=== PATIENT | female | born 1980 | race American Indian/Alaskan Native ===

== ENCOUNTER 2018-04-23 18:56 | Inpatient (IN) | payer MEDICAID, OTHER ==
[2018-04-23] MEDS ORDERED: POLYCILLIN/NS 2 GM/100 ML 2 GM/100 ML BAG IV ONE (20:59)
[2018-04-23] MEDS ORDERED: LACTATED RINGERS 1,000 ML IV SCH ×2 (21:00→22:00)
[2018-04-23] MEDS ORDERED: PITOCin/NS 20 UNIT/1000ML DRIP 20 UNITS/1,000 ML BAG IV SCH ×2 (21:00→22:00)
[2018-04-23] MEDS ORDERED: SUBLIMAZE IV PRN ×2 (21:10→21:50)
[2018-04-23] MEDS ORDERED: ZOFRAN IV PRN (21:50)
[2018-04-23] MEDS ORDERED: BRETHINE SUB-Q PRN (21:50)
[2018-04-23] MEDS ORDERED: STADOL IV PRN (21:50)
[2018-04-23] MEDS ORDERED: NARCAN 0.4 MG/1 ML IV PRN (21:50)
[2018-04-23] MEDS ORDERED: ePHEDrine SULFATE IV PRN (21:50)
[2018-04-23] MEDS ORDERED: BRETHINE IVP PRN (21:50)
[2018-04-23] MEDS ORDERED: XYLOCAINE 2% INFILTRATI ONE (21:50)
[2018-04-23] MEDS ORDERED: MINERAL OIL PO PRN (21:50)
[2018-04-23] MEDS ORDERED: AMPICILLIN/NS 1 GM/50 ML 1 GM/50 ML BAG IV SCH (22:00)
[2018-04-23] MEDS ORDERED: POLYCILLIN IV SCH (22:00)
--- NOTE | 2018-04-23 22:13 | History and Physical Report ---
History of Present Illness Date of examination: 04/23/18 Date of admission: 04/23/18 20:47 Chief complaint: contractions q 4-5 min History of present illness: 38 yo BF with RIKA 04/24/2018 to L&D in active labor. No records available for review. Seen in office today, was told she was 4 cm. Presently, she is 4 cm/70/-1, BOW intact. Contractions q 4-5 min, mild to mod quality. Small amt bloody show. FHT's category I. 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) Family/Genetic History: diabetes (mgm) Social history: no significant social history - Obstetrical History Expected Date of Delivery: 04/24/18 Actual Gestation: 39 Week(s) 6 Day(s) : 5 Para: 3 (1203) Hx # Term Pregnancies: 1 Number of Pregnancies: 2 Spontaneous Abortions: 0 Induced : 0 Number of Living Children: 3 Medications and Allergies Allergies Allergy/AdvReac Type Severity Reaction Status Date / Time No Known Allergies Allergy Unverified 04/23/18 19:16 Active Meds: Active Medications Butorphanol Tartrate (Stadol) 2 mg IV Q2H PRN PRN Reason: Pain , Severe (7-10) Ephedrine Sulfate (Ephedrine Sulfate) 10 mg IV Q2M PRN PRN Reason: Hypotension Fentanyl (Sublimaze) 100 mcg IV Q2H PRN PRN Reason: Labor Pain Ampicillin Sodium (Ampicillin/Ns 1 Gm/50 Ml) 1 gm in 50 mls @ 100 mls/hr IV Q4HR ISREAL Lactated Ringer's (Lactated Ringers) 1,000 mls @ 125 mls/hr IV DIRECT ISREAL Oxytocin/Sodium Chloride (Pitocin/Ns 20 Unit/1000ml Drip) 20 units in 1,000 mls @ 125 mls/hr IV DIRECT ISREAL Mineral Oil (Mineral Oil) 30 ml PO QHS PRN PRN Reason: Constipation Naloxone HCl (Narcan 0.4 Mg/1 Ml) 0.1 mg IV Q2MIN PRN PRN Reason: Res Rate </= 8 or 02 SAT < 92% Ondansetron HCl (Zofran) 4 mg IV Q8H PRN PRN Reason: Nausea And Vomiting Terbutaline Sulfate (Brethine) 0.25 mg SUB-Q ONCE PRN PRN Reason: Hyperstimulation/Hypertonicity Terbutaline Sulfate (Brethine) 0.25 mg IVP ONCE PRN PRN Reason: Hyperstimulation/Hypertonicity Review of Systems All systems: negative - Vital Signs Vital signs: Vital Signs Temp Pulse Resp BP 98.9 F 77 18 120/71 04/23/18 19:18 04/23/18 19:18 04/23/18 19:18 04/23/18 19:18 Temp Pulse Resp BP Pulse Ox 98.9 F 62 18 132/65 95 04/23/18 19:18 04/23/18 22:06 04/23/18 21:35 04/23/18 21:47 04/23/18 22:06 - Physical Exam Breasts: Positive: normal Cardiovascular: Regular rate, No murmurs Lungs: Positive: Clear to auscultation Abdomen: Positive: normal appearance, other (gravid) Genitourinary (Female): Positive: normal external genitalia, normal perenium Vagina: Positive: other (small amt show) Uterus: Positive: enlarged (gravid) Extremities: Positive: normal - Obstetrical FHR: category 1 Uterine Contraction Monitor Mode: External Cervical Dilatation: 4 Cervical Effacement Percentage: 70 station: -1 Uterine Contraction Frequency (min): 4-5 Uterine Contraction Pattern: Regular Results All other labs normal. Assessment and Plan - Patient Problems (1) Active labor at term Current Visit: Yes Status: Acute
[2018-04-23 22:14] LABS: Basophils # (Auto) 0.1 K/mm3 (0.0-0.1); Basophils % (Auto) 0.4 % (0.0-1.8); Eosinophils # (Auto) 0.1 K/mm3 (0.0-0.4); Hematocrit 36.6 % (30.3-42.9); Lymphocytes % (Auto) 13.3 % (13.4-35.0); Mean Corpuscular HGB Conc 33 % (30-34); Mean Corpuscular Hemoglobin 32 pg (28-32); Mean Corpuscular Volume 99 fl (79-97); Monocytes # (Auto) 1.1 K/mm3 (0.0-0.8); Monocytes % (Auto) 7.7 % (0.0-7.3); Platelet Count 205 K/mm3 (140-440); Red Blood Count 3.72 M/mm3 (3.65-5.03); Red Cell Distribution Width 19.5 % (13.2-15.2)
--- NOTE | 2018-04-23 23:33 | Progress Note ---
Assessment and Plan - Patient Problems (1) Active labor at term Current Visit: Yes Status: Acute Subjective - Subjective Date of service: 04/23/18 Interval history: 38 yo BF with RIKA 04/24/2018 to L&D in active labor. No records available for review. Seen in office today, was told she was 4 cm. Presently, she is 4 cm/70/-1, BOW intact. Contractions q 4-5 min, mild to mod quality. Small amt bloody show. FHT's category I. Patient reports: movement normal, contractions Objective - Vital Signs Vital Signs: Vital Signs - 12hr 04/23/18 04/23/18 04/23/18 19:18 19:20 20:05 Temperature 98.9 F Pulse Rate 77 77 80 Respiratory 18 Rate Blood Pressure 120/71 133/66 Blood Pressure 120/71 [Left] O2 Sat by Pulse Oximetry 04/23/18 04/23/18 04/23/18 20:46 20:51 20:56 Temperature Pulse Rate 78 78 79 Respiratory Rate Blood Pressure 123/73 Blood Pressure [Left] O2 Sat by Pulse 97 96 97 Oximetry 04/23/18 04/23/18 04/23/18 21:01 21:06 21:09 Temperature Pulse Rate 75 74 85 Respiratory Rate Blood Pressure Blood Pressure [Left] O2 Sat by Pulse 96 95 94 Oximetry 04/23/18 04/23/18 04/23/18 21:11 21:14 21:16 Temperature Pulse Rate 83 78 78 Respiratory Rate Blood Pressure 133/75 Blood Pressure [Left] O2 Sat by Pulse 95 93 94 Oximetry 04/23/18 04/23/18 04/23/18 21:20 21:21 21:26 Temperature Pulse Rate 73 76 78 Respiratory Rate Blood Pressure Blood Pressure [Left] O2 Sat by Pulse 94 93 94 Oximetry 04/23/18 04/23/18 04/23/18 21:31 21:32 21:35 Temperature Pulse Rate 84 79 Respiratory 18 Rate Blood Pressure Blood Pressure [Left] O2 Sat by Pulse 93 92 Oximetry 04/23/18 04/23/18 04/23/18 21:36 21:37 21:41 Temperature Pulse Rate 77 82 76 Respiratory Rate Blood Pressure Blood Pressure [Left] O2 Sat by Pulse 93 92 91 Oximetry 04/23/18 04/23/18 04/23/18 21:45 21:46 21:47 Temperature Pulse Rate 79 74 72 Respiratory Rate Blood Pressure 132/65 Blood Pressure [Left] O2 Sat by Pulse 92 92 Oximetry 04/23/18 04/23/18 04/23/18 21:51 21:56 22:01 Temperature Pulse Rate 74 74 67 Respiratory Rate Blood Pressure Blood Pressure [Left] O2 Sat by Pulse 92 91 95 Oximetry 04/23/18 04/23/18 04/23/18 22:05 22:06 22:11 Temperature Pulse Rate 62 75 Respiratory 18 Rate Blood Pressure Blood Pressure [Left] O2 Sat by Pulse 95 94 Oximetry 04/23/18 04/23/18 04/23/18 22:16 22:30 22:35 Temperature 98.0 F Pulse Rate 84 74 75 Respiratory Rate Blood Pressure 137/82 Blood Pressure [Left] O2 Sat by Pulse 94 97 97 Oximetry 04/23/18 04/23/18 04/23/18 22:40 22:45 22:50 Temperature Pulse Rate 72 74 78 Respiratory Rate Blood Pressure Blood Pressure [Left] O2 Sat by Pulse 98 97 97 Oximetry 04/23/18 04/23/18 04/23/18 22:55 23:00 23:05 Temperature Pulse Rate 84 78 89 Respiratory Rate Blood Pressure Blood Pressure [Left] O2 Sat by Pulse 97 95 97 Oximetry 04/23/18 04/23/18 04/23/18 23:10 23:15 23:16 Temperature Pulse Rate 81 79 77 Respiratory Rate Blood Pressure 121/66 Blood Pressure [Left] O2 Sat by Pulse 96 97 Oximetry 04/23/18 04/23/18 04/23/18 23:20 23:25 23:30 Temperature Pulse Rate 92 H 98 H 91 H Respiratory Rate Blood Pressure Blood Pressure [Left] O2 Sat by Pulse 97 98 99 Oximetry - Exam Narrative Exam: Cervix 5/100/-1. BOW intact. Bolusing for epidural. Contractions q 2-3 min, moderate quality. FHT's category I. Plan:: epidural; anticipate vag delivery - Labs Labs: Abnormal Labs 04/23/18 20:30 WBC 14.8 H MCV 99 H RDW 19.5 H Lymph % (Auto) 13.3 L [place] % (Auto) 7.7 H [place] # 1.1 H Seg Neutrophils % 77.6 H Seg Neutrophils # 11.5 H Laboratory Results - last 24 hr 04/23/18 04/23/18 20:30 22:36 WBC 14.8 H RBC 3.72 Hgb 12.0 Hct 36.6 MCV 99 H MCH 32 MCHC 33 RDW 19.5 H Plt Count 205 Lymph % (Auto) 13.3 L [place] % (Auto) 7.7 H Eos % (Auto) 1.0 Baso % (Auto) 0.4 Lymph # 2.0 [place] # 1.1 H Eos # 0.1 Baso # 0.1 Seg Neutrophils % 77.6 H Seg Neutrophils # 11.5 H Blood Type B POSITIVE
[2018-04-23] MEDS ORDERED: NARCAN 2 MG/2 ML IV PRN (23:36)
[2018-04-23] MEDS ORDERED: fentaNYL-BUPIV 2 MCG/ML-0.125% 200 MCG/100 ML BAG EPIDURAL SCH (23:45)
[2018-04-24] MEDS ORDERED: ZOFRAN IV PRN (03:57)
[2018-04-24] MEDS ORDERED: PHENERGAN PO PRN (03:57)
[2018-04-24] MEDS ORDERED: BENADRYL PO PRN (03:57)
[2018-04-24] MEDS ORDERED: LANSINOH TP PRN (03:57)
[2018-04-24] MEDS ORDERED: DULCOLAX PR PRN (03:57)
[2018-04-24] MEDS ORDERED: MILK OF MAGNESIA PO PRN (03:57)
[2018-04-24] MEDS ORDERED: PHENERGAN PR PRN (03:57)
[2018-04-24] MEDS ORDERED: TYLENOL PO PRN (03:57)
[2018-04-24] MEDS ORDERED: TUCKS PAD TP PRN (03:57)
--- NOTE | 2018-04-24 03:57 | Procedure Note ---
OB Delivery Note - Delivery Date of Delivery: 04/24/18 (@ 0330) Surgeon: TORIBIO EVANS (CN) Estimated blood loss: 100cc - Vaginal Delivery presentation: vertex Delivery position: OA Intrapartum events: none Delivery induction: none Delivery monitor: external FHT Route of delivery: Delivery placenta: spontaneous Delivery cord: 3 umbilical vessels Episiotomy: none Delivery laceration: none Anesthesia: epidural Delivery comments: Spont vag del of live female inf @ 0330 over intact perineum. 8, 9. Baby placed skin to skin. Delayed cord clamping. Spont del of intact placenta with 3 vessels @ 0341. No lacerations. EBL 100. initiated in L& D. - A at 1 minute: 8 at 5 minutes: 9 Gender: Female (wgt 2595 (5-12 oz))
[2018-04-24] MEDS ORDERED: SODIUM CHLORIDE FLUSH SYRINGE 10 ML IV NR (04:00)
[2018-04-24] MEDS ORDERED: PITOCin/NS 20 UNIT/1000ML DRIP 20 UNITS/1,000 ML BAG IV SCH (04:00)
[2018-04-24] MEDS: MOTRIN PO SCH ×2 (06:02→14:10)
[2018-04-24] MEDS ORDERED: PITOCin/NS 20 UNIT/1000ML DRIP 20,000 MILLIUNITS/1,000 ML BAG IV ONE (06:09)
[2018-04-24 15:53] LABS: Hemoglobin 11.4 gm/dl (10.1-14.3)
[2018-04-24 18:37] LABS: Hepatitis C Virus Antibody Non-Reactive (NonReactive)
[2018-04-24 18:38] LABS: Rubella IgG Antibody Immune (Immune)
[2018-04-25] MEDS: MOTRIN PO SCH ×3 (00:19→12:37)
[2018-04-25 01:03] VITALS: BP 100/50
[2018-04-25] MEDS ORDERED: BOOSTRIX IM ONE (06:00)
--- NOTE | 2018-04-25 12:56 | Progress Note ---
Assessment and Plan - Patient Problems (1) (normal spontaneous vaginal delivery) Onset Date: 04/25/18 Current Visit: Yes Status: Resolved Plan to address problem: A: S/P - PPD #1 Doing well P: May go home today. Subjective - Subjective Date of service: 04/25/18 Principal diagnosis: s/p - PPD #1 Interval history: Pt is feeling well without complaints. Bleeding has improved. Patient reports: appetite normal, voiding normally, pain well controlled, flatus , ambulating normally, no dizzy ambulation, no nauseated : doing well, nursing well, bottle feeding Objective - Vital Signs Latest vital signs: Vital Signs Temp Pulse Resp BP Pulse Ox 04/25/18 00:00 98.0 F 64 18 100/50 99 04/24/18 16:30 98.3 F 72 18 121/71 98 Intake and Output 04/24/18 04/25/18 04/25/18 22:59 06:59 14:59 Intake Total 960 240 Output Total 700 Balance 260 240 Intake: Oral 960 240 Output: Urine 700 Void 700 Other: Total, Intake Amount 240 240 Total, Output Amount 700 # Voids Void 1 1 - Exam Breasts: Present: deferred Cardiovascular: Present: Regular rate Lungs: Present: Clear to auscultation Abdomen: Present: normal appearance Extremities: Present: normal - Labs Labs: Laboratory Tests 04/23/18 04/23/18 04/24/18 20:30 22:36 15:28 WBC 14.8 H RBC 3.72 Hgb 12.0 11.4 Hct 36.6 35.0 MCV 99 H MCH 32 MCHC 33 RDW 19.5 H Plt Count 205 Lymph % (Auto) 13.3 L [place] % (Auto) 7.7 H Eos % (Auto) 1.0 Baso % (Auto) 0.4 Lymph # 2.0 [place] # 1.1 H Eos # 0.1 Baso # 0.1 Seg Neutrophils % 77.6 H Seg Neutrophils # 11.5 H Hep Bs Antigen Hepatitis C Antibody HIV 1&2 Antibody Rapid HIV P24 Antigen Rubella IgG Antibody Blood Type B POSITIVE Antibody Screen Negative 04/24/18 04/24/18 04/24/18 17:49 17:49 17:49 WBC RBC Hgb Hct MCV MCH MCHC RDW Plt Count Lymph % (Auto) [place] % (Auto) Eos % (Auto) Baso % (Auto) Lymph # [place] # Eos # Baso # Seg Neutrophils % Seg Neutrophils # Hep Bs Antigen Non-reactive Hepatitis C Antibody Non-reactive HIV 1&2 Antibody Rapid Non react HIV P24 Antigen Non react Rubella IgG Antibody Immune Blood Type Antibody Screen
--- NOTE | 2018-04-25 13:17 | Discharge Summary ---
Providers - Providers Date of Admission: 04/23/18 20:47 Date of discharge: 04/25/18 Attending physician: PERLA BOYD Primary care physician: PERLA BOYD Hospitalization Reason for admission: active labor, IUP at term Delivery: Episiotomy: none Laceration: none Other procedures: none complications: none Discharge diagnosis: IUP at term delivered [place] baby: female Hospital course: Unremarkable. Condition at discharge: Good Disposition: DC-01 TO HOME OR SELFCARE - Discharge Diagnoses (1) (normal spontaneous vaginal delivery) Status: Resolved Plan - Discharge Medications Prescriptions: Ibuprofen [Motrin 600 MG tab] 600 mg PO Q6H #30 tablet - Provider Discharge Summary Activity: routine, no sex for 6 weeks, no heavy lifting 4 weeks, no strenuous exercise Diet: routine Instructions: routine Additional instructions: [] Smoking cessation referral if applicable(refer to patient education folder for contact #) [] Refer to [facility]'s [facility] Booklet Call your doctor immediately for: * Fever > 100.5 * Heavy vaginal bleeding ( >1 pad per hour) * Severe persistent headache * Shortness of breath * Reddened, hot, painful area to leg or breast * Drainage or odor from incision. * Keep incision clean and dry at all times and follow doctor's instructions regarding bathing/showering - Follow up plan Follow up: PERLA BOYD MD [Primary Care Provider] - 6 Weeks SUMMER PIÑA CNM [Advanced Practice Nurse] - 6 Weeks Forms: [facility] Discharge Summary
== END 2018-04-25 15:30 | disposition home or self-care (01) | DRG 775 ==
LOC: TRG 18:56 → LD 20:47 → OB 04-24 05:49
PROVIDERS: ADMIT Obstetrics & Gynecology; ATTEND Obstetrics & Gynecology
PROC: 10E0XZZ Delivery of Products of Conception, External Approach (ICD-10-PCS; principal; 2018-04-24)
PROC: 3E0R3BZ Introduction of Anesthetic Agent into Spinal Canal, Percutaneous Approach (ICD-10-PCS; 2018-04-24)
PROC: 00HU33Z Insertion of Infusion Device into Spinal Canal, Percutaneous Approach (ICD-10-PCS; 2018-04-24)
DX: O80 Encounter for full-term uncomplicated delivery (principal); Z3A.39 39 weeks gestation of pregnancy; Z37.0 Single live birth; Z83.3 Family history of diabetes mellitus
CPT/HCPCS: 36415; 59025; 85014; 85018; 85025; 86592; 86706; 86762; 86803; 86850; 86900; 86901; 87806; 96360; A6250; J0290; J2590; J3010; J7120